=== PATIENT | male | born 1965 | race Caucasian/White ===

== ENCOUNTER 2019-02-24 09:56 | Day surgery (SDC) | payer BC ==
[2019-02-24] VITALS (11 sets, daily range): BP systolic 109–169; BP diastolic 65–106; Ht 170.2 cm; Wt 102.5 kg
[~2019-02-24] VITALS: Ht 170.2 cm; Wt 102.5 kg
--- NOTE | ~2019-02-24 | OP ---
PATIENT NAME: MINDA WILLIS MEDICAL RECORD: [id number] :69 LOCATION:[facility] ADMISSION DATE: SURGEON: MARVIN DESAI MD DATE OF OPERATION: 02/24/2019 PREOPERATIVE DIAGNOSES: Disc herniation and osteophyte formation at C5-C6 and C6-C7 with cervical radiculopathy. POSTOPERATIVE DIAGNOSES: Disc herniation and osteophyte formation at C5-C6 and C6-C7 with cervical radiculopathy. PROCEDURE: Anterior cervical discectomy and arthroplasty at C5-C6 and C6-C7 with Mobi-C artificial anterior cervical disc. SURGEON: Marvin Desai MD DESCRIPTION AND TECHNIQUE: After induction of general endotracheal anesthesia, the patient was positioned supine on the operating table. Neck was prepped and draped in usual sterile fashion. Fluoroscopic x-ray and freer localized the C5-C6 and C6-C7 interspaces. After infiltration of 1:100,000 epinephrine and 1% lidocaine, a transverse skin incision was carried out from the midline to the sternocleidomastoid muscle. Using blunt and sharp dissection with Metzenbaum scissors, I proceeded in the avascular plane medial to the carotid sheath. The C5-C6 and C6-C7 interspace was identified with fluoroscopic x-ray and a spinal needle. Longus colli muscles were elevated from bodies of C5, C6, and C7. Gilbert distracting pins were placed by the C5-C6 and C6-C7. The disc space was incised and disc material was removed with pituitary rongeurs and curettes at each level. The posterior longitudinal ligament was removed with Cloward rongeurs. Osteophytes were drilled away posteriorly with Midas-Job drill under microscopic illumination. Next, an appropriate sized Mobi-C was placed in the interspace at C5-C6 and C6-C7 under fluoroscopic control. At C5-C6, the disc space size was 15 x 19 x 5 mm high. At C6-C7 interspace, the artificial disc space size was 15 mm x 19 mm x 6 mm high. Good position of the hardware was confirmed on fluoroscopic x-ray. Meticulous hemostasis was maintained throughout the wound. Wound was irrigated with copious amounts of Ancef irrigant solution. The platysma was reapproximated with interrupted 3-0 Vicryl suture, the subdermal layer was closed with 3-0 Vicryl suture. The skin was reapproximated with benzoin and Steri-Strips. A sterile dressing was applied to the wound. The patient was awakened in good condition, taken to recovery. All counts were reported as correct. Estimated blood loss was minimal. TRANSINT:[id number] Voice Confirmation ID: [id number] DOCUMENT ID: [id number] MARVIN DESAI MD CC: [id number] DICTATION DATE: 03/03/19 1146 FINE SANDER: 03/03/19 1243 [facility] [place] 02/25/[address] [address]
[2019-02-24] MEDS ORDERED: ADDERALL XR 3030 MG PO (10:56)
[2019-02-24] MEDS ORDERED: ADDERALL 30 MG30 MG PO (10:56)
[2019-02-24] MEDS ORDERED: MULTI-DAY VITAM1 TAB PO (10:57)
[2019-02-24] MEDS ORDERED: AMBIEN5 MG PO (10:57)
[2019-02-24] MEDS ORDERED: CETIRIZINE HCL5 MG PO (10:58)
[2019-02-24] MEDS ORDERED: MAG-OX 400 MG400 MG PO (10:58)
[2019-02-24] MEDS ORDERED: VALTREX1000 MG PO (10:59)
[2019-02-24] MEDS ORDERED: XYOSTED SC (10:59)
[2019-02-24] MEDS ORDERED: CYANOCOBAL1000 MCG/4 SC (11:00)
[2019-02-24 11:54] LABS: ANION GAP 14.8 mmol/L (8-16); CALCIUM 8.7 mg/dL (8.5-10.1); CARBON DIOXIDE 24.8 mmol/L (21.0-32.0); CREATININE - SERUM 1.2 mg/dL (0.6-1.3); POTASSIUM - SERUM 4.6 mmol/L (3.5-5.1)
[2019-02-24 11:58] LABS: BASOPHILS 0.6 % (0-2); EOSINOPHILS 4.6 % (0-7); HEMATOCRIT 45.3 % (42.0-54.0); HEMOGLOBIN 15.2 g/dL (13.5-17.5); IMMATURE GRANULOCYTES 0.6 % (0-5); LYMPHOCYTES 27.2 % (15-50); MCH 32.6 pg (26.0-34.0); MCHC 33.6 g/dL (31.0-37.0); MCV 97.2 fL (80.0-100.0); MEAN PLATELET VOLUME 9.5 fL (7.4-10.4); MONOCYTES 8.7 % (2-11); NEUTROPHILS 58.3 % (40-80); PLATELET COUNT 282 10x3/uL (130-400); RBC 4.66 10x6/uL (4.20-6.10); RDW 12.8 % (11.5-14.5); WBC 6.4 10x3/uL (4.8-10.8)
--- NOTE | 2019-02-24 17:45 | NUR ---
RECEIVED FROM RECOVERY ROOM. AWAKE AND ALERT SKIN WARM AND DRY. INCISION RIGHT LOWER NECK DRY NO SWELLING OR DRAINAGE. DENIES ANY NUMBNESS. WANTS SOME THING TO EAT. IV LEFT HAND WITHOUT REDNESS OR SWELLING INFUSING WITH LR AT 50 ML HOUR. HEAD OF BED UP 90 DEGREES AT PATIENT'S REQUEST. FAMILY HERE
--- NOTE | 2019-02-24 19:40 | NUR ---
REPORT REC'D, PT'S CARE ASSUMED. ASSESSMENT COMPLETED PER FLOWSHEETS, C/O PAIN TO NECK INCISION 8/10 ON SCALE, REPOSITIONED FOR COMFORT. ST ON CM WITH HR TO 118, DENIES ANY TINGLING OR NUMNESS TO ALL EXTREM. PPP, CALL LIGHT IN REACH. WILL CONT TO MONITOR.
--- NOTE | 2019-02-24 19:58 | NUR ---
PT C/O NAUSEA, NO EMESIS NOTED. ZOFRAN 4MGIVP GIVEN PER ORDER. WILL CONT TO MONITOR,
--- NOTE | 2019-02-24 23:00 | NUR ---
REASSESSMENT COMPLETED PER FLOWSHEETS. NO ACUTE CHANGES NOTED IN PTS STATUS. ST ON CM. C/O DISCOMFORT TO NECK, ICE PACK APPLIED PER PT'S REQUEST. REPOSITIONED FOR COMFORT. CALL LIGHT IN REACH. WILL CONT TO MONITOR.
--- NOTE | 2019-02-24 23:55 | NUR ---
PT C/O PAIN TO NECK 8/10 ON SCALE, PAIN MEDS GIVEN MORPHINE 2MG IVP. REPOSITIONED FOR COMFORT. CPOC.
[2019-02-25] VITALS: BP 134/92
[2019-02-25 01:00] VITALS: BP 134/92
--- NOTE | 2019-02-25 01:30 | NUR ---
PT RESTING QUIETLY AT THIS TIME. VSS. NO NEEDS VOICES. CALL LIGHT IN REACH.
[2019-02-25 02:00] VITALS: BP 124/82
[2019-02-25 03:00] VITALS: BP 132/86
--- NOTE | 2019-02-25 03:00 | NUR ---
REASSESSMENT COMPLETED PER FLOWSHEETS.NO SIGNS OF DISTRESS NOTED AT THIS TIME. VSS. NO NEEDS VOICES. CALL LIGHT IN REACH. CPOC.
[2019-02-25 08:16] VITALS: BP 127/91
--- NOTE | 2019-02-25 08:30 | NUR ---
RECIEVED PER FLOW SHEET--AWAKE -SELF REPOSITIONING-FELICIANO=STRONG-DENIES ANY WEAKNES-REMOVED NIBP SELF-REQUESTED TO SLEEP-BREAKFES TRAY LEFT AT BEDSIDE-DOOR AND CURTAIN CLOSED PER PT REQUEST-SIGNIFICANT OTHER AT BEDSDIE
--- NOTE | 2019-02-25 10:32 | NUR ---
DR LOVELL AT [facility] -DECADRON 10MG IVP GIVEN DIRECTED -DR LOVELL REVIEWED WITH PT
--- NOTE | 2019-02-25 11:03 | NUR ---
dr cates AT [facility] AND SPOKE WITH PT REGARDING POST OP CARE -DIRECTIONS-DECADRON 10MG IVP GIVEN DIRECTED
== END 2019-02-25 11:28 | disposition home or self-care (01) ==
LOC: D.OPS 09:56 → D.CVICU 17:24 → D.OPS 02-25 11:28
PROVIDERS: Anesthesiology; ATTEND Neurological Surgery
DX: M50.222 Other cervical disc displacement at C5-C6 level (principal); M25.78 Osteophyte, vertebrae; M54.12 Radiculopathy, cervical region

== ENCOUNTER 2019-12-16 10:36 | Day surgery (SDC) | payer BC ==
[~2019-12-16] VITALS: Ht 170.2 cm; Wt 88.5 kg
[~2019-12-16 10:36] MED LIST: ADDERALL 30 MG30 MG PO; ADDERALL XR 3030 MG PO; AMBIEN5 MG PO; CETIRIZINE HCL5 MG PO; CYANOCOBAL1000 MCG/4 SC; MAG-OX 400 MG400 MG PO; MULTI-DAY VITAM1 TAB PO; VALTREX1000 MG PO; VALTREX500 MG PO; XYOSTED SC; [UNRECOGNIZED DRUG - OTHER]; [UNRECOGNIZED DRUG - OTHER] SQ
[2019-12-16 12:51] LABS: ANION GAP 12.4 mmol/L (8-16); CALCIUM 8.4 mg/dL (8.5-10.1); CARBON DIOXIDE 25.1 mmol/L (21.0-32.0); CREATININE - SERUM 1.3 mg/dL (0.6-1.3); POTASSIUM - SERUM 4.5 mmol/L (3.5-5.1)
[2019-12-16 12:53] LABS: HEMATOCRIT 46.8 % (42.0-54.0); HEMOGLOBIN 15.9 g/dL (13.5-17.5); MCH 32.5 pg (26.0-34.0); MCV 95.7 fL (80.0-100.0); MEAN PLATELET VOLUME 9.6 fL (7.4-10.4); RBC 4.89 10x6/uL (4.20-6.10); RDW 12.7 % (11.5-14.5); WBC 6.7 10x3/uL (4.8-10.8)
[2019-12-16 13:35] VITALS: BP 152/92; Ht 170.2 cm; Wt 88.5 kg
--- NOTE | 2019-12-16 19:09 | NUR ---
1650 IV D/C'D WITH CANNULA INTACT, PRESSURE HELD, AND DRSG PLACED. DISCHARGE INSTRUCTIONS GIVEN TO PT AND HE VERBALIZED AN UNDERSTANDING. DISCHARGED IN STABLE CONDITION AND WITHOUT C/O
--- NOTE | 2019-12-18 11:03 | OP ---
PATIENT NAME: MINDA WILLIS MEDICAL RECORD: [id number] :69 LOCATION:[facility] ADMISSION DATE: SURGEON: PASTOR RUANO DO DATE OF OPERATION: 12/16/2019 PROCEDURE PERFORMED: Bilateral endoscopic carpal tunnel release. PREOPERATIVE DIAGNOSIS: Bilateral carpal tunnel syndrome. POSTOPERATIVE DIAGNOSIS: Bilateral carpal tunnel syndrome. INDICATIONS: Mr. Willis is a 54-year-old male who has had bilateral carpal tunnel syndrome for quite some time. He was scheduled in September, but had to be canceled due to scheduling and wanted it rescheduled for today. Gone on to do bilateral incisions, one at a time. He is aware of the risks including infection, bleeding, damage to nerves and vessels, need for further surgery, damage to the median nerve, continued pain and weakness, unable to return of sensation due to compression of the median nerve and even . He signed the consent. SURGEON: Pastor Ruano DO DESCRIPTION OF THE PROCEDURE: The patient was taken to the operative suite, laid in supine position, given general anesthetic and 2 grams Ancef. His LMA was placed. The bilateral upper extremities were prepped and draped in sterile fashion. A timeout was performed. Everyone was in agreement with correct side, site, patient and procedure. First, began with a right one and exsanguinated the right upper extremity with an Esmarch tourniquet was inflated to 250 mmHg, it was up for 6 minutes, then made an incision along the volar wrist crease with a 15 blade scalpel and then bluntly dissected down with Mariposanells to the median nerve. I then released the fascia from distal to proximal and the incision and then went into the carpal tunnel and the dilators. I then put the sheath in and then brought in the camera and then raised. I used a probe and a rasp to clean the transcarpal ligament off and then brought in the blade, raised it up and transected it. Fat then been herniated down into the carpal tunnel and I removed all the instruments. I then used a long end of the Ragnell to view the transverse carpal ligament, which was transected and used a scissors to make sure there were no remaining fibers. I then injected with 10 mL of 0.25% Marcaine with epinephrine at the site. Tourniquet was then let down and bleeding was coagulated with a bipolar and closed the site with 5-0 Monocryl in inverted interrupted fashion and Dermabond on the skin. He was then dressed with Adaptic, 4 x 4s, Kerlix and Coban lightly wrapped. I then proceeded to the left side and then made an incision over the volar wrist crease and bluntly dissected down with #2 Ragnells to the median nerve release forearm fascia from distal to proximal and gotten the carpal tunnel with the dilators. I then put in the sheath brought the camera and then brought in the rasp and the probe, cleaned off the transverse carpal ligament and then brought in the blade and raised it up and transected the transverse carpal ligament and fat herniating down into the carpal tunnel. I removed all instruments from the long end of the Ragnell to make sure there was no remaining fibers of the transverse carpal ligament and used scissors as well. I then injected into the site with 10 mL 0.25% Marcaine with epinephrine and the tourniquet was let down, any bleeding was coagulated with the bipolar. I then closed with 5-0 Monocryl in inverted interrupted fashion and placed Dermabond on the incision. He was then dressed with Adaptic, 4 x 4s, Kerlix and a Coban lightly wrapped. The tourniquet time OPERATIVE REPORT [id number] MINDA WILLIS RAY on the left side was exsanguinated prior to starting with an Esmarch on the left upper extremity, tourniquet was inflated to 250 mmHg, it was up for 5 minutes; 6 minutes on the right and was 5 minutes on the left. TRANSINT:[id number] Voice Confirmation ID: [id number] DOCUMENT ID: [id number] PASTOR RUANO DO at 1103 CC: [id number] DICTATION DATE: 12/16/19 170 [employer] PROJECT MANAGER: 12/17/19 0014 [facility] 12/16/19 [facility] [address] [place] [address]
== END 2019-12-16 17:35 | disposition home or self-care (01) ==
LOC: D.OPS 10:36
PROVIDERS: Anesthesiology; ATTEND Orthopaedic Surgery
DX: G56.03 Carpal tunnel syndrome, bilateral upper limbs (principal)